=== PATIENT | male | born 1960 | race Caucasian/White ===

== ENCOUNTER → 2017-01-05 | Day surgery (SDC) | payer OTHER ==
[~2017-01-05] VITALS: Ht 154.9 cm; Wt 89.0 kg
[~2017-01-05] MED LIST: 0.9% Sodium Chloride 1,000 ML IV SCH; METH750T3 PO; OXYC1TAB24 PO; PRE20 PO; Sodium Chloride LOK Flush 10 mL Syringe IV PRN; fentaNYL-PF 50 mCg/mL 2 mL Inj IVPUSH PRN
[2017-01-05 09:36] VITALS: BP 132/82; PULSE 62; RESP 16; O2SAT 98
--- NOTE | 2017-01-05 10:33 | PCM.ENDCOL ---
Colonoscopy Date of Service: Jan 05, 2017 Physician Ricardo Castro MD Pre Procedure Diagnosis: Screening Post Procedure Dx & Findings: Polyp, hemorrhoids diverticuli Procedure Colonoscopy PROCEDURE IN DETAIL: Prep adequate Withdrawal time 12 minutes After unremarkable rectal examination the Olympus video colonoscope was inserted patient's anal canal and was advanced to cecum. Landmarks were identified including the ileocecal valve and appendiceal orifice. Scope was withdrawn systematically. Visualized colonic mucosa showed healthy shiny mucosa with normal healthy-appearing vasculature. In the cecum, there was a 3-4 mm polyp around the appendiceal orifice. This was resected completely using cold snare. In the transverse colon there was a 2 mm polyp which was removed completely using cold snare. In the descending colon there was another 3 mm polyp which was removed completely using cold snare. In the rectum there was a 2 mm polyp which was removed completely using cold snare. In the sigmoid colon there are a few small diverticuli. In the rectum retroflexion was done which showed hemorrhoids. Anal canal was inspected carefully on the way out and hemorrhoids noted. Impression Polyps 4 status post complete removal Diverticuli Hemorrhoids Recommendation Repeat colonoscopy 3 years Diverticular diet Presedation Assessment Risks and Benefits Informed consent was obtained from the patient after all risks and benefits including but not limited to drug reaction, infection, pain, bleeding, perforation, as well as alternatives were discussed. Patient monitoring Continuous pulse oximetry, cardiac monitoring, blood pressure monitoring, IV access, and oxygen at 2L per nasal cannula. Periprocedural Fentanyl: Fentanyl 125mcg Incrementally Midazolam: Midazolam 7mg Incrementally Complications There were no periprocedural complications identified. Post Procedure Plan Post Procedure Recommendations 1. Restrict activities today. 2. Resume normal activities in the morning. 3. Resume medications. 4. Patient informed of normal post procedure side effects as bloating, drowsiness, blood streaking in the stool. 5. average risk CRCS. If colon polyps come back as: -Hyperplastic- can repeat colonoscopy in 10 years -Tubular adenoma- repeat colonoscopy in 5 years -Tubulovillous/villous adenoma- repeat colonoscopy in 3 years -If any dysplasia- return to clinic as soon as possible 6. Please don't hesitate to call me with any questions. Ricardo Castro MD Jan 05, 2017 10:33
[2017-01-05 10:36] VITALS: BP 109/75; PULSE 63; RESP 16; O2SAT 97
[2017-01-05 10:44] VITALS: BP 116/79; PULSE 77; RESP 14; O2SAT 99
--- NOTE | 2017-01-11 11:35 | PATH ---
SURGICAL PATHOLOGY Attending Physician:Ricardo Castro M.D. CASE STATUS: Signed Out PATIENT NAME: PHANI ARGUELLO PID: [id number] : 1960 DATE COLLECTED:01/05/2017 21:40 SPECIMEN: 1: Colon, Polyp 2: Colon, Polyp 3: Colon, Polyp 4: Rectum, Biopsy CLINICAL HISTORY: POLYP 1). CECAL POLYP X 1 2). TRANSVERSE COLON POLYP X 1 3). DESCENDING COLON POLYP X 1 4). RECTAL POLYP X 1 FINAL DIAGNOSIS: 1.CECUM, POLYP, BIOPSY: SESSILE SERRATED ADENOMA. 2.TRANSVERSE COLON, POLYP, BIOPSY: TUBULAR ADENOMA. 3.DESCENDING COLON, POLYP, BIOPSY: TUBULAR ADENOMA. 4.RECTUM, POLYP, BIOPSY: HYPERPLASTIC POLYP. ICD10 D12.0 D12.3 D12.4 GROSS DESCRIPTION: The specimen is received in four formalin filled containers labeled with the patient's name. 1). The specimen is labeled "cecal polyp" and consists of a 0.3 x 0.3 x 0.2 CM portion of tissue which is entirely submitted in cassette 1A. 2). The specimen is labeled "transverse colon polyp" and consists of 2 portions of tissue which aggregate to 0.2 x 0.2 x 0.2 CM. The specimen is entirely submitted in cassette 2A. 3). The specimen is labeled "descending colon polyp and "and consists of 3 portions of tissue which aggregate to 0.3 x 0.3 x 0.2 CM. The specimen is entirely submitted in cassette 3A. 4). The specimen is labeled "rectal polyp" and consists of a 0.2 x 0.2 x 0.2 CM portion of tissue which is entirely submitted in cassette 4A. 01/05/2017DC MICRO DESCRIPTION: See diagnosis. ICD-9 CODES: CPT CODES: 1: 43147 2: 68719 3: 10842 4: 33977 Electronically Signed Out Cassandra Grant MD [facility] Pathology [facility] [address], [place] [address] Technical component performed at [facility], [address], [place], [address]
== END | disposition home or self-care (01) ==
LOC: END 08:23
PROVIDERS: ATTEND Internal Medicine
DX: Z12.11 Encounter for screening for malignant neoplasm of colon (principal); D12.0 Benign neoplasm of cecum; D12.3 Benign neoplasm of transverse colon; D12.4 Benign neoplasm of descending colon; K62.1 Rectal polyp; K57.30 Diverticulosis of large intestine without perforation or abscess without bleeding; K64.8 Other hemorrhoids
CPT/HCPCS: 45385; 99153; G0500; J2250; J3010; J7030